=== PATIENT | male | born 1960 | race African-American/Black ===

== ENCOUNTER 2017-02-11 09:15 | Emergency (ER) | payer SELFPAY ==
[~2017-02-11] VITALS: Ht 180.3 cm; Wt 108.9 kg
--- NOTE | 2017-02-11 09:32 | Emergency Room Report ---
History of Present Illness General Chief Complaint: Abdominal Pain Source: Patient, EMS Present Illness HPI Patient reports flank pain on the right side that started last week he saw his primary physician who wanted to get imaging and urology consultation He had found 2+ blood in the urine As the pain continued patient was having difficulty getting outpatient workup Presents to the ER by paramedics Denies any chest pain or shortness of breath denies any fall or trauma Pain is localized to the right flank area bilaterally in denies any vomiting or diarrhea Denies any fevers or chills Allergies: Coded Allergies: No Known Allergies (Unverified , 02/11/17) Patient History Past Medical History: see triage record Pertinent Family History: none Reviewed Nursing Documentation: PMH: Agreed, PSxH: Agreed Nursing Documentation-PMH Past Medical History: No Stated History Review of Systems All Other Systems: negative except mentioned in HPI Physical Exam Vital Signs Date Time Temp Pulse Resp B/P Pulse Ox O2 Delivery O2 Flow Rate FiO2 02/11/17 09:04 96.8 70 19 147/82 95 Room Air Sp02 EP Interpretation: reviewed, normal General Appearance: well appearing, no apparent distress Head: normocephalic, atraumatic Eyes: bilateral eye EOMI, bilateral eye PERRL ENT: hearing grossly normal, normal pharynx, TMs + canals normal, uvula midline Neck: full range of motion, supple, no meningismus, no bony tend Respiratory: lungs clear, normal breath sounds, no rhonchi, no respiratory distress, no retraction, no accessory muscle use Cardiovascular #1: normal peripheral pulses, regular rate, rhythm, no edema, no gallop, no JVD, no murmur Gastrointestinal: normal bowel sounds, non tender, soft, no mass, no organomegaly, non-distended, no guarding, no hernia, no pulsatile mass, no rebound Genitourinary: other - Tender on the right-sided CVA Musculoskeletal: normal inspection Neurologic: oriented x3, responsive, manager labor relations III-XII nml as tested, motor strength/ tone normal, sensory intact Psychiatric: mood/affect normal Skin: normal color, no rash, warm/dry, palpation normal Lymphatic: normal inspection, no adenopathy Medical Decision Making Diagnostic Impression: Primary Impression: Flank pain ER Course With the history exam and presentation, multiple differentials considered, including but not limited to appendicitis, gastritis, cholecystitis, diverticulitis Patient's urine sample is clear without any evidence of blood CT does show a intrarenal stone on the left side No other obvious acute pathology is seen patient continues to be hemodynamically stable and feels improved At this time was given copy of his CAT scan to have close outpatient followup Labs Test 02/11/17 09:28 02/11/17 09:40 Urine Color Pale yellow Urine Appearance Clear Urine pH 6.5 (4.5-8.0) Urine Specific [place] 1.010 (1.005-1.035) Urine Protein Negative (NEGATIVE) Urine Glucose (UA) Negative (NEGATIVE) Urine Ketones Negative (NEGATIVE) Urine Occult Blood Negative (NEGATIVE) Urine Nitrite Negative (NEGATIVE) Urine Bilirubin Negative (NEGATIVE) Urine Urobilinogen Normal MG/DL (0.0-1.0) Urine Leukocyte Esterase Negative (NEGATIVE) White Blood Count 7.7 K/UL (4.8-10.8) Red Blood Count 4.49 M/UL (4.70-6.10) Hemoglobin 14.2 G/DL (14.2-18.0) Hematocrit 43.2 % (42.0-52.0) Mean Corpuscular Volume 96 FL (80-99) Mean Corpuscular Hemoglobin 31.7 PG (27.0-31.0) Mean Corpuscular Hemoglobin Concent 33.0 G/DL (32.0-36.0) Red Cell Distribution Width 11.4 % (11.6-14.8) Platelet Count 223 K/UL (150-450) Mean Platelet Volume 7.3 FL (6.5-10.1) Neutrophils (%) (Auto) 69.0 % (45.0-75.0) Lymphocytes (%) (Auto) 22.9 % (20.0-45.0) Monocytes (%) (Auto) 6.7 % (1.0-10.0) Eosinophils (%) (Auto) 0.7 % (0.0-3.0) Basophils (%) (Auto) 0.8 % (0.0-2.0) Sodium Level 140 mEQ/L (135-145) Potassium Level 3.4 mEQ/L (3.4-4.9) Chloride Level 104 mEQ/L (98-107) Carbon Dioxide Level 23 mEQ/L (20-30) Anion Gap 13 (5-15) Blood Urea Nitrogen 14 mg/dL (7-23) Creatinine 1.1 mg/dL (0.7-1.2) Estimat Glomerular Filtration Rate > 60 mL/min (>60) Glucose Level 115 mg/dL (74-106) Calcium Level 7.4 mg/dL (8.6-10.2) Total Bilirubin < 0.2 mg/dL (0.0-1.2) Aspartate Amino Transf (AST/SGOT) 17 U/L (5-40) Alanine Aminotransferase (ALT/SGPT) 17 U/L (3-41) Alkaline Phosphatase 75 U/L (40-129) Total Protein 5.4 g/dL (6.6-8.7) Albumin 3.2 g/dL (3.5-5.2) Globulin 2.2 g/dL Albumin/Globulin Ratio 1.4 (1.0-2.7) Lipase 58 U/L (< 60) CT/MRI/US Diagnostic Results CT/MRI/US Diagnostic Results : Impression CT abdomen pelvisImpression: Nonobstructive 5 mm left lower pole renal calculus. No evidence of ureteral calculus or obstructive uropathy. No calculi demonstrated on the right Incidental finding of left upper pole renal cyst. Prominent jejunal loops. Gradual transition to normal caliber distally, no definite obstructive lesion. Findings may represent mild enteritis changes. Correlate with clinical findings Result findings as noted, including bilateral right greater left basilar pulmonary parenchymal atelectasis, mild degenerative spondylosi Last Vital Signs Date Time Temp Pulse Resp B/P Pulse Ox O2 Delivery O2 Flow Rate FiO2 02/11/17 09:04 96.8 70 19 147/82 95 Room Air Status: improved Disposition: HOME, SELF-CARE Condition: Improved Scripts Methocarbamol* (ROBAXIN-750*) 750 Mg Tablet 750 MG PO TID, #21 TAB 0 Refills Prov: JENAE ROLLINS D.O. 02/11/17 Additional Instructions: Patient is provided with the discharge instructions notified to follow up with primary doctor in the next 2-3 days otherwise return to the er with any worsening symptoms. Please note that this report is being documented using DRAGON technology. This can lead to erroneous entry secondary to incorrect interpretation by the dictating instrument. JENAE ROLLINS D.O. Feb 11, 2017 09:32
[2017-02-11 09:48] VITALS: BP 155/84
[2017-02-11 09:58] LABS: BASOPHILS % (AUTO) 0.8 % (0.0-2.0); EOSINOPHILS % (AUTO) 0.7 % (0.0-3.0); LYMPHOCYTES % (AUTO) 22.9 % (20.0-45.0); MEAN CORPUSCULAR HEMOGLOBIN 31.7 PG (27.0-31.0); MEAN CORPUSCULAR VOLUME 96 FL (80-99); MEAN PLATELET VOLUME 7.3 FL (6.5-10.1); MONOCYTES % (AUTO) 6.7 % (1.0-10.0); PLATELET COUNT 223 K/UL (150-450); RED BLOOD COUNT 4.49 M/UL (4.70-6.10); RED CELL DISTRIBUTION WIDTH 11.4 % (11.6-14.8); WHITE BLOOD COUNT 7.7 K/UL (4.8-10.8)
[2017-02-11 09:58] LABS: APPEARANCE,URINE CLEAR; KETONES,URINE NEGATIVE (NEGATIVE); LEUKOCYTE ESTERASE ,URINE NEGATIVE (NEGATIVE); NITRITE,URINE NEGATIVE (NEGATIVE); PH,URINE 6.5 (4.5-8.0); PROTEIN,URINE NEGATIVE (NEGATIVE); UROBILINOGEN,URINE NORMAL MG/DL (0.0-1.0)
[2017-02-11] MEDS ORDERED: Ketorolac 30mg Inj IV ONE (10:00)
[2017-02-11 10:22] LABS: ALANINE AMINOTRANSFERASE 17 U/L (3-41); ALBUMIN/GLOBULIN RATIO 1.4 (1.0-2.7); ANION GAP 13 (5-15); ASPARTATE AMINO TRANSFERASE 17 U/L (5-40); CALCIUM 7.4 mg/dL (8.6-10.2); CARBON DIOXIDE 23 mEQ/L (20-30); CHLORIDE 104 mEQ/L (98-107); CREATININE 1.1 mg/dL (0.7-1.2); GLOMERULAR FILTRATION RATE > 60 mL/min (>60); HEMOLYSIS 6; LIPASE 58 U/L (< 60); POTASSIUM 3.4 mEQ/L (3.4-4.9); SODIUM 140 mEQ/L (135-145); TOTAL PROTEIN 5.4 g/dL (6.6-8.7)
--- NOTE | 2017-02-11 10:45 | Diagnostic Imaging Report ---
Indication: Right-sided flank pain x1 week, hematuria Technique: Spiral acquisitions obtained through the abdomen and pelvis. No oral or IV contrast utilized, per urinary stone protocol. Multiplanar reconstructions were generated. Total dose length product 1025 mGycm. CTDIvol(s) 17 mGy. Dose reduction achieved using automated exposure control Comparison: None Findings: There is a 5 mm calculus in the lower pole of the left kidney. No right renal calculi. No ureteral calculi on either side. No hydronephrosis or hydroureter. The bladder is unremarkable. Lack of IV contrast limits assessment of the renal parenchyma. There is a 17 mm cyst in the left renal upper pole. Lack of IV contrast limits assessment of the other solid organs. Gallbladder is mildly distended. There is evidence of a redundant mucosal fold in the fundus, but no definite radiopaque calculi. The liver demonstrates diffuse low attenuation, compatible with diffuse fatty change. No definite focal abnormality. The bile ducts are nondilated. The pancreas, spleen, adrenals are unremarkable. No retroperitoneal or mesenteric mass or adenopathy. No pelvic mass or adenopathy. There is no evidence of diverticulosis or diverticulitis. The appendix is normal. Proximal jejunal loops are prominent, gas and fluid filled. Transition to normal caliber distal small bowel is gradual. No free or loculated intraperitoneal air or fluid is evident. The distal esophagus and stomach are unremarkable. The right lung base demonstrates considerable atelectatic changes. Mild dependent atelectatic changes are seen at the left lung base as well. The bones demonstrate degenerative proliferative changes of the lumbar spine. Impression: Nonobstructive 5 mm left lower pole renal calculus. No evidence of ureteral calculus or obstructive uropathy. No calculi demonstrated on the right Incidental finding of left upper pole renal cyst. Prominent jejunal loops. Gradual transition to normal caliber distally, no definite obstructive lesion. Findings may represent mild enteritis changes. Correlate with clinical findings Result findings as noted, including bilateral right greater left basilar pulmonary parenchymal atelectasis, mild degenerative spondylosis The CT scanner at [facility] is accredited by the [employer] and the scans are performed using protocols designed to limit radiation exposure to as low as reasonably achievable to attain images of sufficient resolution adequate for diagnostic evaluation.
[2017-02-11] MEDS ORDERED: ROBAXIN-750750 MG PO (10:57)
[2017-02-11 11:05] VITALS: BP 113/84
[2017-02-11 11:10] VITALS: BP 113/84
== END 2017-02-11 11:12 | disposition home or self-care (01) ==
LOC: EDBD 09:15 → EMR 10:21
DX: R10.9 Unspecified abdominal pain (principal); N28.1 Cyst of kidney, acquired
CPT/HCPCS: 36415; 74176; 80053; 81003; 83690; 85025; 96374; 96375; 99284; J1885